=== PATIENT | female | born 1985 | race Hispanic/Latino ===

== ENCOUNTER 2018-09-16 03:01 | Inpatient (IN) | payer OTHER, BC ==
[2018-09-16 03:47] VITALS: BMI 27.1
[2018-09-16 05:24] LABS: HEMOGLOBIN 11.1 g/dL (12.0-16.0); MEAN CELL VOLUME 89.6 fl (81.0-99.0); MEAN CORPUSCULAR HEMOGLOBIN 30.5 pg (27.0-31.0); MEAN CORPUSCULAR HGB CONC 34.1 g/dL (33.0-37.0); RBC 3.62 Mil/uL (3.80-5.20); RED CELL DISTRIBUTION WIDTH 13.6 % (11.5-14.5); WHITE BLOOD COUNT 12.9 K/uL (4.8-10.8)
[2018-09-16] MEDS ORDERED: Lactated Ringer's 1,000 ML IV ONE (07:32)
[2018-09-16] MEDS ORDERED: Fentanyl/Bupivacaine HCl 250 ML EPI ONE (07:34)
[2018-09-16] MEDS ORDERED: Oxytocin 30 UNIT in NS 500 ml 30 UNITS/500 ML BAG IV ONE (07:36)
[2018-09-16] MEDS ORDERED: Lactated Ringer's 1,000 ML IV SCH (07:45)
[2018-09-16] MEDS ORDERED: OXYTOCIN/0.9 % NS 20 UNIT/1,000 ML BAG IV SCH (07:45)
[2018-09-16] MEDS ORDERED: Lidocaine 1% Inj (20ml) ONE (08:24)
--- NOTE | 2018-09-16 08:36 | OBADHP ---
Datetime: 09/16/2018 08:28 Admit Comment, IP Provider: at 40wks GA presented to [facility] 2-3cm and progressed to 7-8cm. Pt re questing epidural at this time. Denies VB, Lof. Pt reports good FM. GBS negative PMHx denies PSHx denies Med PNV NKDA OBHx x 1 SocHx No drugs, tob, etoh A -- at 40wks in active labor, GBS negative P -- Admit for management of labor and delivery. Contact anesthesia for epidural. FHT category I Pelvic Type - PN: Adequate Extremities - PN: Normal Abdomen - PN: Normal Back - PN: Normal Breast - PN: Normal Lungs - PN: Normal Heart - PN: Normal Thyroid - PN: Normal Neurologic - PN: Normal HEENT - PN: Normal General - PN: Normal FHR - Baseline A Provider: 140s Contraction Comments Provider: q4-5min IP Hx Assessment: The History has been Reviewed and is Current Vital Signs Provider: Reviewed; Within Normal Limits IP Chief Complaint: Uterine contractions NICHD Variability Prov Fetus A: Moderate 6-25bpm NICHD Accel Fetus A IP Provider: 15X15 FHR Category Provider Fetus A: Category I NICHD Decel Fetus A IP Provider: None Dilatation, Provider: 7-8 Effacement, Provider: 100 Station, Provider: -2 Genitourinary Exam: Normal DTRs - PN: Normal EGA AdmitDate IP: 40.0 IP Adm Impression: Term, intrauterine ; Active labor IP Admit Plan: Admit to unit; Initiate labor protocol
--- NOTE | 2018-09-16 15:01 | OBDS ---
DELIVERY PERSONNEL Delivery Doctor: Gopi Rizo MD [employer]: Mehnaz Holt RN Anesthesiologist: Belle Diallo MD MATERNAL INFORMATION Delivery Anesthesia: Epidural Placenta Cultured: No Maternal Complications: None RN Comments: patient delivered viable infant girl. baby was dry and clamped and placed on maternal c hest for skin to skin. infant remained skin to skin. pitocin 30units infusing. both remained in stable condition. Provider Comments: Delivered a live baby girl at 1:55 PM the baby was bulb suctioned on the perineum then transferred to the maternal chest. The cord was clamped and cut 3 vessels noted, cord blood wa s obtained and sent to the lab. The placenta was delivered at 2:00 PM and intact, there were no vagi nal lacerations. The estimated blood loss was 100 cc. The baby went to the [facility] baby nursery with A pgars of 9 and 9 weighing 2985 g LABOR SUMMARY EDC: 09/16/2018 00:00 No. Babies in Womb: 1 Attempted: No Labor Anesthesia: Epidural LABOR INFORMATION Reason for Induction: Not Applicable Onset of Labor: 09/16/2018 07:15 Complete Dilatation: 09/16/2018 12:00 Group B Beta Strep: Done, Result Unknown Steroids Given: None Reason Steroids Not Administered: Not Applicable MEMBRANES Membranes Rupture Method: Spontaneous Rupture of Membranes: 09/16/2018 08:20 Length of Rupture (hrs): 5.58 Amniotic Fluid Color: Clear Amniotic Fluid Amount: Small Amniotic Fluid Odor: Normal STAGES OF LABOR Stage 1 hrs: 4 Stage 1 min: 45 Stage 2 hrs: 1 Stage 2 min: 55 Stage 3 hrs: 0 Stage 3 min: 5 Total Time in Labor hrs: 6 Total Time in Labor min: 45 VAGINAL DELIVERY Episiotomy: None Laceration Extension: N/A Laceration Type: None Laceration Repair: Not Applicable Sponge Count Correct: N/A Sharps Count Correct: N/A BABY A INFORMATION Delivery Date/Time: 09/16/2018 13:55 Method of Delivery: Vaginal Born in Route : No : N/A Forceps: N/A Vacuum Extraction: N/A Shoulder Dystocia : No SHOULDER DYSTOCIA BABY A Infant Delivery Date/Time: 09/16/2018 13:55 PRESENTATION/POSITION BABY A Presentation: Cephalic PLACENTA INFORMATION BABY A Placenta Delivery Time : 09/16/2018 14:00 Placenta Method of Delivery: Spontaneous Placenta Status: Delivered SCORES BABY A Heart Rate 1 min: >100 bpm Resp Effort 1 min: Slow, Irregular Reflex Irritability 1 min: Cough or Sneeze or Pulls Away Muscle Tone 1 min: Active Motion Color 1 min: Body [place], Extremities Blue Resuscitation Effort 1 min: Tactile Stimulation; PPV/NCPAP SCORE 1 MIN: 8 Heart Rate 5 min: >100 bpm Resp Effort 5 min: Slow, Irregular Reflex Irritability 5 min: Cough or Sneeze or Pulls Away Muscle Tone 5 min: Active Motion Color 5 min: Body [place], Extremities Blue Resuscitation Effort 5 min: Tactile Stimulation; PPV/NCPAP SCORE 5 MIN: 8 INFANT INFORMATION BABY A Gestational Age at Delivery: 40.0 Gestational Status: Term Outcome : Liveborn Condition : Stable Infant Sex: Female WEIGHT/LENGTH BABY A Infant Birthweight (gms): 2985 Weight (lb): 6 Infant Weight (oz): 9 CORD INFORMATION BABY A No. Cord Vessels: 3 Nuchal Cord : Around Neck x1, Loose Cord Blood Taken: Yes Suction: Mouth
[2018-09-16] MEDS ORDERED: Acetaminophen-Codeine 300/30 mg Tab PO PRN ×2 (16:43→16:58)
[2018-09-16] MEDS ORDERED: Benzocaine/Menthol SPRAY TOP PRN (16:43)
[2018-09-16] MEDS: Benzocaine/Menthol SPRAY TOP PRN ×2 (19:28→22:16)
[2018-09-17 06:36] LABS: MEAN CELL VOLUME 89.7 fl (81.0-99.0); MEAN CORPUSCULAR HEMOGLOBIN 30.4 pg (27.0-31.0); MEAN CORPUSCULAR HGB CONC 33.9 g/dL (33.0-37.0); RBC 3.24 Mil/uL (3.80-5.20); RED CELL DISTRIBUTION WIDTH 13.7 % (11.5-14.5); WHITE BLOOD COUNT 15.2 K/uL (4.8-10.8)
[2018-09-17 06:41] LABS: HEMOGLOBIN 9.9 g/dL (12.0-16.0)
--- NOTE | 2018-09-17 10:47 | OBPPN ---
Datetime: 09/17/2018 10:42 PP Pain Prov: Within normal limits PP Nausea Prov: Denies PP Flatus Prov: Yes PP Breasts Prov: Normal PP Heart Prov: Normal PP Lungs Prov: Normal PP Abdomen/Uterus Prov: Normal PP Lochia Prov: Normal PP Vulva/Perineum Prov: Normal PP CVA Tenderness Prov: Normal PP Extremities Prov: Normal PP Comments Phys Exam Prov: fundus firm under umbilicus PP Impression Prov: Normal progression PP Plan Prov: Continue present management PP Progress Note Prov: Patient denies CP, no N/V, no SOB, tolerating PO diet, ambulating well, mild lochia A/P PPD #1 1. continue orders 2. Percocet/motrin prn pain 3. Encourage ambulation and IP PP Procedures: None Vital Signs Provider PP: Reviewed; Within Normal Limits
[2018-09-18] MEDS: Benzocaine/Menthol SPRAY TOP PRN (08:23)
--- NOTE | 2018-09-18 10:05 | OBPPN ---
Datetime: 09/18/2018 09:00 PP Pain Prov: Within normal limits PP Nausea Prov: Denies PP Flatus Prov: Yes PP BM Prov: Yes PP Breasts Prov: Normal PP Heart Prov: Normal PP Lungs Prov: Normal PP Abdomen/Uterus Prov: Normal PP Lochia Prov: Normal PP Vulva/Perineum Prov: Normal PP CVA Tenderness Prov: Normal PP Extremities Prov: Normal PP Progress Prov: Normal PP Impression Prov: Normal progression PP Plan Prov: Discharge PP Progress Note Prov: She feels fine A; PPD day 2 Anemia - asymptpomatic PLAN: discharge home and follow up in 6w [place] 90 Vital Signs Provider PP: Reviewed; Within Normal Limits
--- NOTE | 2018-09-18 10:05 | OBDCSUM ---
Datetime: 09/18/2018 10:02 Discharged to, Provider: Home Follow up at, Provider: Nestor Roque Instr Activity: Normal activity Discharge Diagnosis, Provider: Term Delivered Follow up in weeks, Provider: 6 weeks Disch Activity Restrictions: No sexual activity; Nothing in vagina - [place], tampons, douche
[2018-09-18 19:08] VITALS: BP 135/77; PULSE 68; RESP 20; TEMP 98.1; O2SAT 98
== END 2018-09-18 14:20 | disposition home or self-care (01) | DRG 807 ==
LOC: H.EROB2 03:01 → H.L&D 07:32 → H.OB/GYN 17:13
PROVIDERS: ADMIT Obstetrics & Gynecology; ATTEND Obstetrics & Gynecology
PROC: 10E0XZZ Delivery of Products of Conception, External Approach (ICD-10-PCS; principal; 2018-09-16)
PROC: 4A1HXCZ Monitoring of Products of Conception, Cardiac Rate, External Approach (ICD-10-PCS; 2018-09-16)
DX: O69.81X0 Labor and delivery complicated by cord around neck, without compression, not applicable or unspecified (principal); Z37.0 Single live birth; O99.02 Anemia complicating childbirth; Z3A.40 40 weeks gestation of pregnancy

== ENCOUNTER 2018-10-23 16:23 | Emergency (ER) | payer OTHER, BC ==
[2018-10-23 16:23] VITALS: BMI 27.1
[2018-10-23 16:48] VITALS: RESP 16
[2018-10-23 18:08] LABS: BASO # 0.1 K/uL (0.0-0.2); BASO % 0.8 % (0.0-2.0); EOS # 0.2 K/uL (0.0-0.7); EOS % 2.8 % (0.0-4.0); HEMOGLOBIN 13.2 g/dL (12.0-16.0); LYMPH # 2.4 K/uL (1.0-4.3); LYMPH % 27.5 % (20.0-40.0); MEAN CELL VOLUME 88.4 fl (81.0-99.0); MEAN CORPUSCULAR HEMOGLOBIN 29.5 pg (27.0-31.0); MEAN CORPUSCULAR HGB CONC 33.3 g/dL (33.0-37.0); MEAN PLATELET VOLUME 8.3 fl (7.2-11.7); MONO # 0.5 K/uL (0.0-0.8); NEUT # 5.5 K/uL (1.8-7.0); NEUT % 62.9 % (50.0-75.0); RBC 4.47 Mil/uL (3.80-5.20); RED CELL DISTRIBUTION WIDTH 13.4 % (11.5-14.5); WHITE BLOOD COUNT 8.8 K/uL (4.8-10.8)
[2018-10-23 18:20] LABS: BLOOD UREA NITROGEN 14 mg/dl (7-17); CALCIUM 9.2 mg/dL (8.4-10.2); GFR NON-AFRICAN AMERICAN > 60
--- NOTE | 2018-10-23 20:02 | ED PDOC ---
HPI: Female Pain Time Seen by Provider: 10/23/18 17:24 Chief Complaint (Nursing): Female Genitourinary Chief Complaint (Provider): vaginal bleeding History Per: Patient History/Exam Limitations: no limitations Additional Complaint(s): 32 y/o F with no significant PMH who presents with heavy vaginal bleeding for the past 2 days. Patient states that she gave vaginally on 09/16 and her bleeding had slowed down. However, about one week ago she began bleeding again and passed a large clot that appeared to have had tissue in it. Her bleeding worsened 2 days ago, to the point of changing full pads hourly. Denies dizziness, palpitations, SOB. Patient called her performance reporter (Dr. Filipe Mccarthy) earlier today but was told by front loader residential driver to present to ED for further evaluation. Past Medical History Reviewed: Historical Data, Nursing Documentation, Vital Signs Vital Signs: Last Vital Signs Temp 98.9 F 10/23/18 16:48 Pulse 74 10/23/18 16:48 Resp 16 10/23/18 16:48 BP 147/90 10/23/18 16:48 Pulse Ox 98 10/23/18 16:48 Primary Care Provider: Doctor,Conversion - Medical History PMH: No Chronic Diseases Denies: Depression, Diabetes, HTN - Surgical History Surgical History: No Surg Hx - Family History Family History: States: Unknown Family Hx - Home Medications Home Medications: Ambulatory Orders Medication Instructions Recorded Vit No.126/Iron/Folic 1 tab PO DAILY 09/16/18 [Prenavite] - Allergies Allergies/Adverse Reactions: Allergies Allergy/AdvReac Type Severity Reaction Status Date / Time No Known Allergies Allergy Verified 10/23/18 16:47 Review of Systems Constitutional: Negative for: Fever Gastrointestinal: Negative for: Abdominal Pain Genitourinary Female: Positive for: Vaginal Bleeding. Negative for: Dysuria, Frequency, Hematuria, Vaginal Discharge Physical Exam - Reviewed Nursing Documentation Reviewed: Yes Vital Signs Reviewed: Yes - Physical Exam Appears: Positive for: Well Skin: Positive for: Normal Color. Negative for: Pallor Cardiovascular/Chest: Positive for: Regular Rate, Rhythm Respiratory: Positive for: Normal Breath Sounds Gastrointestinal/Abdominal: Positive for: Normal Exam, Soft. Negative for: Tenderness Pelvic Exam: Positive for: External Exam Normal (exam performed in the presence of ERNESTO Patel), Active Bleeding. Negative for: Speculum Exam Normal (large amount of dark blood noted in vaginal vault), Cervicitis, Discharge Neurological/Psych: Positive for: Awake, Alert, Oriented - Laboratory Results Result Diagrams: 10/23/18 17:58 10/23/18 17:58 - ECG O2 Sat by Pulse Oximetry: 98 Medical Decision Making Medical Decision Making: CBC, BMP, type and cross transvaginal U/S Labs: wnl 20:00: patient endorsed to KATELYN Ma pending ultrasound results and discussion with Dr. Mccarthy. Disposition - Clinical Impression Clinical Impression: Dysfunctional uterine bleeding - Patient ED Disposition Is Patient to be Admitted: Transfer of Care (KATELYN Ma) - Disposition Disposition: Transfer of Care Disposition Time: 20:00 Condition: STABLE Instructions: Heavy Periods (DC)
--- NOTE | 2018-10-23 20:18 | ED PDOC ---
- Laboratory Results Result Diagrams: 10/23/18 17:58 10/23/18 17:58 - ECG O2 Sat by Pulse Oximetry: 98 - Progress ED Course And Treament: ULTRASOUND: FINDINGS TRACE FLUID IN CL DE SAC MULTIPLE FOCI IN THE ENDOMETRIUM MOST COMPATIBLE WITH BLOOD CLOTS MULTIPLE RIGHT OVARIAN FOLLICLES LEFT OVARIAN CYSTS NO TORSION D/W DR. VÁZQUEZ. PATIENT TO CALL OFFICE TO ARRANGE F/U. Disposition - Clinical Impression Clinical Impression: Dysfunctional uterine bleeding - POA Present On Arrival: None - Disposition Disposition: Routine/Home Disposition Time: 20:55 Condition: FAIR Instructions: Heavy Periods (DC)
[2018-10-23 21:13] VITALS: BP 117/69; PULSE 69; O2SAT 100
--- NOTE | 2018-10-23 21:43 | CP.PCM.PN ---
Subjective - Date & Time of Evaluation Date of Evaluation: 10/23/18 Time of Evaluation: 21:25 - Subjective Subjective: She came for VB since last week. She had in Aug 2018 (full term uncomplicatedat [facility]). She had VB after for 2w but it as less and less. Last Monday, she noticed vaginal bleeding oan and off each day. One day she passed tissue. No pain. no fever no chills. Objective - Vital Signs/Intake and Output Vital Signs (last 24 hours): Temp Pulse Resp BP Pulse Ox 98.9 F 69 16 117/69 100 10/23/18 16:48 10/23/18 21:13 10/23/18 21:13 10/23/18 21:13 10/23/18 21:13 - Labs Labs: 10/23/18 17:58 10/23/18 17:58 - Constitutional Appears: Well - GI/Abdominal Exam GI & Abdominal Exam: Soft. absent: Guarding, Rigid (Decleind elvic exam - done earlier today - reported to be not active VB by PA), Tenderness Assessment and Plan - Assessment and Plan (Free Text) Assessment: Vaginal bleeding - not anemic/asymptomatic Plan: Discussion with pt about admission/observation/Poss D&C hysteroscopy...She declines at this time. She will follow up at the office as scheduled this monday for her visit. Advised to come to ER if increased pain/VB
[2018-10-23 21:46] VITALS: TEMP 98.3
--- NOTE | 2018-10-24 13:07 | US ---
Date of service: 10/23/2018 HISTORY: recurrent heavy vag bleeding s/p vag 09/20 COMPARISON: None available. TECHNIQUE: Transvaginal pelvic ultrasound was performed. FINDINGS: UTERUS: Measures 8.9 x 6.2 x 4.9 cm. Normal in size and appearance. No fibroid or other mass lesion seen. ENDOMETRIUM: Measures 8.0 mm in diameter. There are multiple tiny echogenic foci within the endometrium, nonspecific and could represent calcifications or blood products. CERVIX: No cervical abnormality identified. RIGHT OVARY: Measures 3.0 x 1.6 x 1.6 cm. No solid mass. Normal flow. There are multiple small follicles. LEFT OVARY: Measures 2.7 x 1.5 x 1.3 cm. No solid mass. Normal flow. There is a 7 mm follicle. FREE FLUID: There is trace fluid in the cul de sac. OTHER FINDINGS: None. IMPRESSION: Central endometrial echo complex is normal in thickness. Small echogenic foci within the endometrium could represent calcifications or blood products. Trace fluid in the cul de sac. A preliminary report was provided by [facility].
== END 2018-10-23 21:47 | disposition home or self-care (01) ==
LOC: H.ER 16:23
DX: N93.8 Other specified abnormal uterine and vaginal bleeding (principal)